=== PATIENT | female | born 1965 | race African-American/Black ===

== ENCOUNTER → 2016-06-29 | Outpatient (CLI) | payer OTHER ==
[~2016-06-29] MED LIST: BACTRIM DS TAB1 EACH PO; DIAZEPAM2 MG PO; GLYBURIDE 5 MG T5 M1 GT; IMURAN 50MG TAB50 M1 PO; LIORESAL 10 MG10 MG PO; NORVASC5 MG PO; TIZANIDINE HCL 22 M1 PO
[2016-06-29 10:40] VITALS: BP 133/70
== END ==
LOC: OPONC 07:48 → SPEC 11:11
DX: A69.22 Other neurologic disorders in Lyme disease (principal); Z45.2 Encounter for adjustment and management of vascular access device
CPT/HCPCS: 27000; 95000

== ENCOUNTER 2020-05-01 16:05 | Emergency (ER) | payer OTHER ==
[~2020-05-01] VITALS: Ht 177.8 cm; Wt 81.7 kg
[2020-05-01 17:30] LABS: ABSOLUTE NEUTROPHILS 8.5 thou/uL (1.4-8.2); BASOPHILS 0.4 % (0.0-2.0); EOSINOPHILS 0.9 % (0.0-3.0); HEMATOCRIT 38.1 % (37.0-47.0); HEMOGLOBIN 12.7 gm/dL (12.0-15.0); LYMPHOCYTES 7.6 % (24.0-44.0); MCH 31.2 pg (26.0-34.0); MCHC 33.4 g/dL (28.0-37.0); MCV 93.4 fL (80.0-100.0); MONOCYTES 5.9 % (1.0-8.0); PLATELET COUNT 210 thou/uL (150-400); POLYS 85.2 % (36.0-66.0); RBC 4.08 mil/uL (4.20-5.00); RDW 15.2 % (10.5-14.5)
[2020-05-01 17:40] LABS: CALCIUM 9.2 mg/dL (8.5-10.1); CREATININE 0.6 mg/dL (0.6-1.0); POTASSIUM 4.1 mmol/L (3.5-5.1)
[2020-05-01 17:46] LABS: ALBUMIN 3.4 g/dL (3.4-5.0); TOTAL BILIRUBIN 1.1 mg/dL (0.2-1.0); TOTAL PROTEIN 7.7 g/dL (6.4-8.2)
[2020-05-01 17:54] LABS: URINE BILIRUBIN NEGATIVE (Negative); URINE BLOOD TRACE (Negative); URINE CLARITY CLEAR; URINE COLOR YELLOW; URINE GLUCOSE-RANDOM* NEGATIVE (Negative); URINE KETONES 1+ (Negative); URINE LEUKOCYTES-REFLEX NEGATIVE (Negative); URINE NITRITE-REFLEX NEGATIVE (Negative); URINE PROTEIN (DIPSTICK) NEGATIVE (Negative); URINE SPECIFIC GRAVITY >= 1.030 (1.005-1.035)
[2020-05-01 20:49] VITALS: BP 102/57
--- NOTE | 2020-05-03 07:37 | EKG ---
[address] [address] ELECTROCARDIOGRAM REPORT Name: HANK BAPTISTE Room #: [facility]#: [id number] Admission: 05/01/20 Attend Phys: Discharge: 05/01/20 Date of : 63 Report #: [id number] [facility] ED Test Date: 2020-05-01 Test Time: 16:15:56 Pat Name: HANK BAPTISTE Department: Room: Gender: F Dorr Operator: lisandra : 1965 Requested By: Karri Kenny Order Number: [id number] MD: Solis Thapa Measurements Intervals Edison Rate: 122 P: 56 NC: 144 QRS: -61 QRSD: 99 T: 87 QT: 328 QTc: 468 Interpretive Statements Sinus tachycardia RSR' in V1 or V2, probably normal variant Artifact in lead(s) III,aVL,aVF,V1,V3,V4,V5,V6 Compared to ECG 05/09/2016 14:38:10 RSR' in V1 or V2 now present Electronically Signed On 05-03-2020 7:37:11 HISTORY INSTRUCTOR by Solis Thapa [email or web address] <ELECTRONICALLY SIGNED> By: Solis Thapa MD, [facility] 05/03/20 0737 1615 1615 Solis Thapa MD, [facility] /EPI
== END 2020-05-01 20:55 | disposition home or self-care (01) ==
LOC: ER 16:05
PROVIDERS: Nurse Practitioner
DX: M25.571 Pain in right ankle and joints of right foot (principal); R53.83 Other fatigue; Z90.710 Acquired absence of both cervix and uterus; Z79.899 Other long term (current) drug therapy; Z88.8 Allergy status to other drugs, medicaments and biological substances

== ENCOUNTER 2020-05-08 15:33 | Inpatient (IN) | payer OTHER ==
[~2020-05-08] VITALS: Ht 177.8 cm; Wt 81.7 kg
[2020-05-08 17:53] LABS: HEMATOCRIT 36.2 % (37.0-47.0); HEMOGLOBIN 12.4 gm/dL (12.0-15.0); MCH 31.8 pg (26.0-34.0); MCHC 34.3 g/dL (28.0-37.0); MCV 92.8 fL (80.0-100.0); RBC 3.9 mil/uL (4.20-5.00); WBC 7.1 thou/uL (4.0-11.0)
[2020-05-08 18:06] LABS: CALCIUM 9.1 mg/dL (8.5-10.1); CREATININE 0.6 mg/dL (0.6-1.0); POTASSIUM 3.7 mmol/L (3.5-5.1)
[2020-05-08 19:36] VITALS: BP 101/69
[2020-05-08 20:53] VITALS: BP 125/74
--- NOTE | 2020-05-09 03:34 | NUR ---
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
[2020-05-09 09:18] VITALS: BP 131/71
--- NOTE | 2020-05-09 11:21 | NUR ---
THIS RN SPOKE WITH DR. CISNEROS AND WAS GIVEN A VERBAL ORDER TO HOLD IMURAN FOR ONE WEEK AFTER SURGERY. ORDER FORWARDED TO DR. GONZALEZ. DR. CISNEROS HAS CLEARED PATIENT TO HAVE SURGERY.
--- NOTE | 2020-05-09 13:26 | NUR ---
PT CARE ASSUMED AT 0700. A&Ox4. BEDREST. KNEE IMMOBILIZER IN PLACE ON R.LIGHT. FLU VACCINCE GIVEN TODAY. BASELINE WHEELCHAIR MOBILIZATION. IV PATENT WITH NO REDNESS OR EDEMA, FLUIDS INFUSING. ORTHO CONSULTED. PT WILL BE HAVING SURGERY TOMORROW (05/10) NPO AFTER MIDNIGHT. PT DECLINES PAIN. SCD'S IN PLACE. FALL PROTOCOL IN PLACE. CALL LIGHT IN REACH. PT USES PHONE TO COMMUNICATE WITH THE STAFF DUE TO BEING NONVERBAL.
[2020-05-09 17:41] VITALS: BP 100/63
[2020-05-09 20:51] VITALS: BP 115/61
--- NOTE | 2020-05-10 03:44 | NUR ---
ASSUMED CARE OF PT AT 1900. PT IS A/O X4 AND IS NON-VERBAL. AT TIMES IS ABLE TO WHISPER TO YES/NO QUESTIONS. ROOM AIR. IS CURRENTLY ON BEDREST. USES BEDPAN AND CALLS OUT APPROPRIATELY. RIGHT LEG IMMOBILIZER IN PLACE. PT C/O PAIN. PRN PAIN MEDICATION GIVEN DIRECTED. CURRENTLY NPO AWAITING PROCEDURE IN THE AM. FALL PRECAUTIONS IN PLACE, CALL LIGHT IS WITHIN REACH.
[2020-05-10 04:30] VITALS: BP 101/49
--- NOTE | 2020-05-10 08:12 | NUR ---
Assumed pt care at 7a.Pt in bed resting without c/o.Assessment completed.vss. Pt communicate with phone. rated her rt lower extremity pain 5/10 but denied need for pain med.Bp oral med given with sips of water.Pt left for surgery per bed at 0810.
[2020-05-10 08:16] VITALS: BP 104/53
[2020-05-10 12:48] VITALS: BP 91/57
[2020-05-10 14:16] VITALS: BP 104/61
[2020-05-10 20:19] VITALS: BP 147/98
--- NOTE | 2020-05-11 04:00 | NUR ---
PT HAS STRESS INCONTINCE. CALLS WITH NEEDS. ALERT AND ORIENTED X 4. PAIN WELL MANAGED BY NORCO. AFEBRILE. DENIES SOA.
[2020-05-11 07:25] VITALS: BP 104/53
[2020-05-11 09:01] LABS: MCH 30.8 pg (26.0-34.0); MCV 93.3 fL (80.0-100.0); RBC 2.89 mil/uL (4.20-5.00); RDW 14.8 % (10.5-14.5); WBC 6.5 thou/uL (4.0-11.0)
[2020-05-11 09:04] LABS: CALCIUM 8.2 mg/dL (8.5-10.1); CREATININE 0.4 mg/dL (0.6-1.0); MAGNESIUM 1.7 mg/dL (1.8-2.4); POTASSIUM 3.4 mmol/L (3.5-5.1)
[2020-05-11 09:15] LABS: HEMOGLOBIN 8.9 gm/dL (12.0-15.0)
--- NOTE | 2020-05-11 11:31 | NUR ---
ASSESSMENT: CM REVIEWED CHART. PT WAS ADMITTED DUE TO RIGHT TIBIA AND FIBULA FX. PT HAS HX OF STIFFMANS SYNDROMS (MOERSCH-WOLTMAN SYNDROME). PT USES HER PHONE TO COMMUNICATE BETTER WITH STAFF. PT REPORTS LIVING IN A HOUSE WITH HER FATHER. PT STATES SHE HAS A COUPLE OF STEPS TO ENTER BUT NO STEPS SHE HAS TO USE ONCE INSIDE. PT HAS A WALKER, POWER CHAIR, STANDARD WHEELCHAIR, SHOWER CHAIR, AND LEG BRACES AT HOME. PT REPORTS SHE HAS A HX OF HAVING [facility] AT HOME HOME [facility] IN THE PAST BUT NOT CURRENTLY. 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 PT REPORTS THAT SHE THINKS SHE HAS BEEN TO [place] IN THE PAST. PT HAD SURGERY YESTERDAY AND IS TO WORK WITH PT/OT TODAY. 5N HAS BEEN CONSULTED TO EVALUATE. LIASON ON 5N NOTIFIED. CM WILL AWAIT FURTHER INPUT FROM 5N. CM ALSO LEFT SNF LIST AT THE BEDSIDE FOR PATIENT TO REVIEW. CM ATTEMPTED TO CONTACT PATIENTS FATHER BUT NO ANSWER. CM WILL CONTINUE TO FOLLOW TO ASSIST NEEDED.
--- NOTE | 2020-05-11 13:19 | NUR ---
Assumed pt care this am, VS stable, able to communicate using simple yes or no questions. Would used her phone to communicate when she needs to say long sentences. Dressing on the right LLE is c/d/i. Pain is managed with medications, pt is a set up but able to eat meals on her own. Uses the bed [facility]son and is able to call out when she needs help.
--- NOTE | 2020-05-11 14:58 | NUR ---
ON-GOING ASSESSMENT: 5N EVALUATED PATIENT AND ARE UNABLE TO ACCEPT SHE WILL BE 6WEEKS TOE TOCH WEIGHT BEARING SO THEY ARE RECOMMENDING SNF. CM DISCUSSED WITH PATIENT AND REVIEW SNF LIST. SHE REQUESTED REFERRAL BE SENT TO [facility]. CM FAXED REFERRAL WITH NEGATIVE COVID TEST AND NOTIFIED DAVID THE LIASON WHO STATES SHE WILL REVIEW AND CHECK BED AVAILABILITY. CM WILL CONTINUE TO FOLLOW TO ASSIST NEEDED.
[2020-05-11 16:50] VITALS: BP 91/48
[2020-05-11 19:11] VITALS: BP 101/46
[2020-05-12 03:31] VITALS: BP 113/57
--- NOTE | 2020-05-12 04:22 | NUR ---
RECEIVED CARE OF THIS PATIENT AT 1900. PATIENT ALERT AND ORIENTED X4. FLUIDS INFUSING IN RFA. HAS SCD ON LLE. DRESSING D/I ON RLE. REMAINS ON BEDREST. USES PHONE TO COMMUNICATE. DENIES PAIN. SLEPT OFF AND ON DURING NIGHT.
[2020-05-12 04:30] VITALS: BP 129/94
[2020-05-12 07:05] VITALS: BP 93/50
--- NOTE | 2020-05-12 08:07 | O ---
[facility] [place] [address] OPERATIVE REPORT Name: HANK BAPTISTE Room #: 441-P [facility] IN M.R.#: [id number] Admission: 05/08/20 Attend Phys: Drew Prescottdean Discharge: Date of : 63 Report #: [id number] THIS REPORT FOR: cc: Annette Summers MD, Joahn MD Yager,Tanner Chavez MD ~ DATE OF SERVICE: 05/10/2020 PREOPERATIVE DIAGNOSES: 1. Right tibia fracture. 2. Right fibula fracture. POSTOPERATIVE DIAGNOSES: 1. Right tibia fracture. 2. Right fibula fracture. PROCEDURES: 1. Right tibia intramedullary nail placement. 2. Closed treatment, right fibula fracture. ANESTHESIA: General. INDICATIONS FOR PROCEDURE: This is a 55-year-old female who sustained a ground level fall approximately 1 week ago. She was brought for evaluation. Her radiographs were negative for fracture. She was discharged with instructions to ambulate as tolerated. She continued to walk, but had difficulty with pain. She was brought back to the Emergency Department where radiographs were taken, which revealed a proximal tibial and fibular shaft fractures. Risks and benefits, and treatment options were discussed including surgical and nonsurgical, decision made to proceed with surgical intervention. Risks and benefits were discussed. Informed consent was obtained. DESCRIPTION OF PROCEDURE: The patient was brought back to the operating room. Anesthesia was begun. Once satisfactory anesthesia was achieved, the patient was positioned on a flattop bed. Operative right lower extremity was prepped and draped in the usual sterile fashion. After prepping and draping, once all members of the surgical team were present, a timeout was called and the appropriate patient, site, procedure as well as the administration preprocedure antibiotics was confirmed. Incision was made 2 fingerbreadths proximal to the patella. This was carried sharply through the skin and the quadriceps tendon. The knee joint was accessed. Under fluoroscopic guidance, a pin was placed in the anterior aspect of the proximal tibia just medial to the lateral tibial spine. The canal was opened and a ball tip guidewire was passed across the fracture site. Longitudinal traction was pulled at the fracture site and the canal was sequentially reamed. This was reamed up to a size [address] reamer[address] [address] OPERATIVE REPORT Name: HANK BAPTISTE Hank Room #: 441-P [facility] IN M.R.#: [id number] Admission: 05/08/20 Attend Phys: Drew Kellogg Discharge: Date of : 63 Report #: [id number] tibia was measured and at the right side 360 mm x 12 mm diameter nail was chosen. This was gently impacted into place under fluoroscopic guidance to confirm no disruption of the fracture site. Utilizing an aiming arm, 4 proximal interlock screws were placed including the 2 proximal most oblique screws. There was excellent purchase of these screws. Utilizing the perfect nooksack technique, 2 distal interlock screws were drilled and placed. Fracture was stable and well reduced. Final images were taken. All wounds were thoroughly irrigated and closed with 2-0 Vicryl suture and 3-0 nylon suture. 0 Vicryl was used to close the quadriceps tendon, Xeroform, 4 x 4's, Webril, and an Aguila wrap with a Cam walker. I placed the final dressings. The patient tolerated the procedure well. There were no complications. COMPLICATIONS: None. ESTIMATED BLOOD LOSS: 150 mL. PLAN: The patient will be toe touch weightbearing on her right lower extremity. Plan for followup in 2 weeks for suture removal and x-rays. <ELECTRONICALLY SIGNED> By: Tanner Hill MD 05/12/20 0807 1112 1138 Tanner Hill MD /nt
[2020-05-12 08:20] VITALS: BP 93/50
[2020-05-12 10:58] LABS: RDW 15.3 % (10.5-14.5)
[2020-05-12 11:00] LABS: HEMATOCRIT 28.2 % (37.0-47.0); HEMOGLOBIN 9.3 gm/dL (12.0-15.0); MCHC 32.8 g/dL (28.0-37.0); MCV 94.6 fL (80.0-100.0); RBC 2.99 mil/uL (4.20-5.00); WBC 7.8 thou/uL (4.0-11.0)
[2020-05-12 11:08] LABS: CALCIUM 8.5 mg/dL (8.5-10.1); CREATININE 0.5 mg/dL (0.6-1.0); POTASSIUM 3.6 mmol/L (3.5-5.1)
[2020-05-12] MEDS ORDERED: HYDROCODON-ACE1 EAC7 PO (11:59)
[2020-05-12] MEDS ORDERED: MIRALAX17 GM PO (12:00)
[2020-05-12 14:48] LABS: URINE BILIRUBIN NEGATIVE (Negative); URINE BLOOD NEGATIVE (Negative); URINE CLARITY CLEAR; URINE COLOR YELLOW; URINE GLUCOSE-RANDOM* NEGATIVE (Negative); URINE KETONES NEGATIVE (Negative); URINE LEUKOCYTES-REFLEX TRACE (Negative); URINE NITRITE-REFLEX NEGATIVE (Negative); URINE PROTEIN (DIPSTICK) NEGATIVE (Negative); URINE SPECIFIC GRAVITY 1.025 (1.005-1.035)
[2020-05-12] MEDS ORDERED: ENOXAPARIN40 MG/0.1 SUBQ (15:37)
--- NOTE | 2020-05-12 15:59 | NUR ---
ON-GOING ASSESSMENT: CM REVIEWED CHART AND SPOKE WITH PT. LIASON FROM [facility] STATING THEY CAN ACCEPT PATIENT. PT IS AGREEABLE WITH PLAN. CM FAXED DISCHARGE ORDERS TO [facility] [place] AND CONFIRMED THEY RECEIVED THEM. PTS FATHER IS AT THE BEDSIDE AND AGREEABLE WITH PLAN. TRANSPORTATION HAS BEEN ARRANGED VIA [facility] FOR 1630. CM NOTIFIED BEDSIDE RN AND SHE HAS THE CONTACT NUMBER FOR REPORT. PT AND HER FATHER ARE AWARE. PT REPORTS NO FURTHER NEEDS FROM CM. CASE CLOSED.
--- NOTE | 2020-05-12 20:04 | NUR ---
PT stated that the patient didnot need Cam boots, but non-weight bearing until seeing the doctor. PT voiced that he would talk to the doctor about it.
== END 2020-05-12 17:25 | DRG 493 ==
LOC: ER 15:33 → 4S 19:03 → EROBS 19:03 → 4W 20:49 → 4S 05-10 19:42 → EROBS 05-10 23:09 → 4S 05-10 23:10
PROVIDERS: Internal Medicine; Nurse Practitioner Family; Orthopaedic Surgery; ADMIT Hospitalist; ATTEND Hospitalist
DX: S82.191A Other fracture of upper end of right tibia, initial encounter for closed fracture (principal); G25.82 Stiff-man syndrome; S82.401A Unspecified fracture of shaft of right fibula, initial encounter for closed fracture; E75.5 Other lipid storage disorders; I10 Essential (primary) hypertension; F41.9 Anxiety disorder, unspecified; E87.6 Hypokalemia; E83.42 Hypomagnesemia; W18.39XA Other fall on same level, initial encounter; Z20.822 Contact with and (suspected) exposure to COVID-19; Z88.8 Allergy status to other drugs, medicaments and biological substances; Y93.89 Activity, other specified; Z79.899 Other long term (current) drug therapy; Y92.89 Other specified places as the place of occurrence of the external cause; Z90.710 Acquired absence of both cervix and uterus; Y99.8 Other external cause status; Z23 Encounter for immunization
CPT/HCPCS: 10040; 10195; 50010; 50101; 50386; 50635; 51412; 56527; 56528; 57091; 5737; 5743; 57862; 57866; 58625; 58626; 58627; 62110; 62900; 70005

== ENCOUNTER 2020-06-17 13:49 | Emergency (ER) | payer OTHER ==
[~2020-06-17] VITALS: Ht 177.8 cm; Wt 81.7 kg
[~2020-06-17 13:49] MED LIST changes: +ENOXAPARIN40 MG/0.1 SUBQ; +HYDROCODON-ACE1 EAC7 PO; +MIRALAX17 GM PO
[2020-06-17] MEDS ORDERED: CITRATE OF MAG296 M1 PO (14:13)
[2020-06-17] MEDS ORDERED: BACLOFEN 10MG T10 MG PO (14:13)
[2020-06-17] MEDS ORDERED: HYDROCODON-ACE1 EAC7 PO ×2 (14:14→14:15)
[2020-06-17] MEDS ORDERED: MAXZIDE-25 MG1 EACH PO (14:16)
[2020-06-17] MEDS ORDERED: FUROSEMIDE 20 M20 MG PO (14:17)
[2020-06-17] MEDS ORDERED: FLECAINIDE ACET50 M2 PO (14:17)
[2020-06-17] MEDS ORDERED: ENOXAPARIN40 MG/0.4 SUBQ (14:17)
[2020-06-17] MEDS ORDERED: SENNA PLUS TAB1 EACH PO (14:18)
[2020-06-17 15:05] LABS: URINE BILIRUBIN NEGATIVE (Negative); URINE BLOOD 3+ (Negative); URINE CLARITY CLEAR; URINE COLOR YELLOW; URINE GLUCOSE-RANDOM* NEGATIVE (Negative); URINE KETONES NEGATIVE (Negative); URINE NITRITE-REFLEX NEGATIVE (Negative); URINE PROTEIN (DIPSTICK) NEGATIVE (Negative); URINE SPECIFIC GRAVITY <= 1.005 (1.005-1.035); URINE UROBILINOGEN 0.2 E.U./dl (0.2-1.0)
[2020-06-17 15:08] LABS: URINE LEUKOCYTES-REFLEX 2+ (Negative)
[2020-06-17 15:10] LABS: ABSOLUTE NEUTROPHILS 4.8 thou/uL (1.4-8.2); BASOPHILS 0.6 % (0.0-2.0); EOSINOPHILS 1.5 % (0.0-3.0); HEMATOCRIT 39.6 % (37.0-47.0); LYMPHOCYTES 20.1 % (24.0-44.0); MCH 30.5 pg (26.0-34.0); MCHC 32.9 g/dL (28.0-37.0); MCV 92.8 fL (80.0-100.0); MONOCYTES 7.2 % (1.0-8.0); PLATELET COUNT 322 thou/uL (150-400); POLYS 70.6 % (36.0-66.0); RBC 4.27 mil/uL (4.20-5.00); RDW 14.7 % (10.5-14.5); WBC 6.9 thou/uL (4.0-11.0)
[2020-06-17 15:16] LABS: BACTERIA-REFLEX 1-9 Few /HPF (None Seen); CASTS None Seen /LPF (None Seen); CRYSTALS None Seen /LPF (None Seen); RENAL EPITHELIAL CELLS 0-3 Few /LPF (None Seen); SQUAMOUS 0-3 Few /LPF (0-3); URINE RBC 0-2 Rare /HPF (0-2); URINE WBC-REFLEX 0-5 Rare /HPF (0-5)
[2020-06-17 15:17] LABS: CALCIUM 9.5 mg/dL (8.5-10.1); CREATININE 0.6 mg/dL (0.6-1.0); POTASSIUM 3.8 mmol/L (3.5-5.1)
[2020-06-17 15:23] LABS: ALBUMIN 3.3 g/dL (3.4-5.0); TOTAL BILIRUBIN 0.3 mg/dL (0.2-1.0); TOTAL PROTEIN 7.5 g/dL (6.4-8.2)
[2020-06-17 15:28] LABS: APTT 24.5 Seconds (24.5-32.8); INR 0.95; PROTIME 10.4 Seconds (9.3-11.4)
[2020-06-17] MEDS ORDERED: MACROBID 100 M100 M1 PO (16:30)
[2020-06-17] MEDS ORDERED: PYRIDIUM200 MG PO (16:30)
[2020-06-17 18:40] VITALS: BP 146/85
[2020-06-20] MEDS ORDERED: CEPHALEXIN500 MG PO (08:09)
== END 2020-06-17 18:56 ==
LOC: ER 13:49
PROVIDERS: Emergency Medicine
DX: N93.8 Other specified abnormal uterine and vaginal bleeding (principal); N30.80 Other cystitis without hematuria; Z88.6 Allergy status to analgesic agent; Z79.899 Other long term (current) drug therapy; Z90.710 Acquired absence of both cervix and uterus